=== PATIENT | female | born 1970 | race Caucasian/White ===

== ENCOUNTER 2022-08-02 12:29 | Emergency (ER) | payer BC ==
[~2022-08-02] VITALS: Ht 162.6 cm; Wt 92.5 kg
[2022-08-02] MEDS ORDERED: IBUPROFEN 600 MG TABLET ONE (13:18)
--- NOTE | 2022-08-02 13:29 | NUR ---
xray at bedside
[2022-08-02] MEDS ORDERED: IBUPROFEN 600 MG TABLET PO ONE (13:30)
[2022-08-02] MEDS ORDERED: IBUP-1953 PO ×2 (14:45→15:21)
--- NOTE | 2022-08-02 15:26 | NUR ---
Patient discharged to home in stable condition. Written and verbal after care instructions given. Patient verbalizes understanding of instruction.
[2022-08-02 15:27] VITALS: BP 128/74
== END 2022-08-02 15:27 | disposition home or self-care (01) ==
LOC: ER 13:02
DX: S46.911A Strain of unspecified muscle, fascia and tendon at shoulder and upper arm level, right arm, initial encounter (principal); M54.2 Cervicalgia; V49.9XXA Car occupant (driver) (passenger) injured in unspecified traffic accident, initial encounter; Y93.89 Activity, other specified; Y92.89 Other specified places as the place of occurrence of the external cause; Y99.8 Other external cause status
CPT/HCPCS: 72125-TC; 73030-TC